=== PATIENT | female | born 1970 | race African-American/Black ===

== ENCOUNTER → 2017-01-05 | Outpatient (CLI) | payer OTHER ==
--- NOTE | 2017-01-06 06:41 | MM ---
Reason for exam: additional evaluation requested from abnormal screening. Last mammogram was performed less than 1 month ago. History: Family history of breast cancer in 3 sisters, breast cancer in mother, and breast cancer in 4 maternal aunts. Physical Findings: Nurse did not find any significant physical abnormalities on exam. MG Work Up Mamm w CAD LT LM and spot compression MLO view(s) were taken of the left breast. Prior study comparison: January 03, 2017, bilateral MG screening mammo w CAD. December 10, 2015, bilateral MG screening mammo w CAD. The breast tissue is extremely dense which could obscure a lesion on mammography. The previously seen asymmetry resolves on additional views and appear as surronding fibroglandular tissue. These results were verbally communicated with the patient and result sheet given to the patient on 01/05/17. ASSESSMENT: Benign, BI-RAD 2 RECOMMENDATION: Return to routine screening mammogram schedule for both breasts.
== END | disposition home or self-care (01) ==
LOC: RADMAMWWP 15:41
PROVIDERS: ATTEND Family Medicine
DX: R92.8 Other abnormal and inconclusive findings on diagnostic imaging of breast (principal)

== ENCOUNTER → 2019-10-30 | Outpatient (CLI) | payer BC ==
--- NOTE | 2019-10-31 07:31 | US ---
EXAMINATION TYPE: US transvaginal DATE OF EXAM: 10/30/2019 COMPARISON: NONE CLINICAL HISTORY: N92.1 Menopausal and female climacteric states. Irregular heavy cycles x 1 year, gr avida 2, para 2, history of tubal ligation TECHNIQUE: Transvaginal exam only per ordering physician. Date of LMP: 10/02/2019 EXAM MEASUREMENTS: Uterus: 7.1 x 3.8 x 4.4 cm Endometrial Stripe: 0.9 cm Right Ovary: not seen Left Ovary: 2.1 x 1.2 x 1.2 cm 1. Uterus: anteverted, mildly heterogeneous 2. Endometrium: measures wnl for patient's LMP 3. Right Ovary: not seen 4. Left Ovary: wnl 5. Bilateral Adnexa: wnl 6. Posterior cul-de-sac: wnl Slight heterogeneity of uterus without focal mass identified. Endometrial stripe within normal limits with normal trilaminar appearance. IMPRESSION: Nonvisualization of right ovary may be surgically absent otherwise unremarkable study.
== END | disposition home or self-care (01) ==
LOC: RADUSWWP 16:18
PROVIDERS: ATTEND Obstetrics & Gynecology
DX: N92.1 Excessive and frequent menstruation with irregular cycle (principal)
CPT/HCPCS: 76830

== ENCOUNTER 2020-02-02 14:38 | Emergency (ER) | payer BC ==
[2020-02-02 15:03] VITALS: RESP 18
[2020-02-02] MEDS ORDERED: ACETAMINOPHEN TAB 325 MG TAB PO STA (15:31)
[2020-02-02 16:11] VITALS: BP 117/81; PULSE 72
--- NOTE | 2020-02-02 16:18 | XR ---
EXAMINATION TYPE: XR chest 2V DATE OF EXAM: 02/02/2020 COMPARISON: NONE HISTORY: Fever TECHNIQUE: 2 views FINDINGS: Heart and mediastinum are normal. Lungs are clear. Diaphragm is normal. Bony thorax appears normal. Pulmonary vascularity is normal. IMPRESSION: Normal chest.
--- NOTE | 2020-02-02 16:22 | ED ---
Recheck HPI - General Chief Complaint: Recheck/Abnormal Lab/Rx Stated Complaint: Wants COVID Test Time Seen by Provider: 02/02/20 15:11 Source: patient Mode of arrival: ambulatory Limitations: no limitations - History of Present Illness Initial Comments: 49yo female denies PMH prsented today because daughter came to [facility] and tested positive for covid. Patient stats she feels ok just fatigued,, did not know she had a fever, denies cough, chest pain or SOB. Pateitn appears wel nontoxic on arrival. No other complaints. - Related Data Allergies Allergy/AdvReac Type Severity Reaction Status Date / Time No Known Allergies Allergy Verified 02/02/20 15:03 Review of Systems ROS Statement: Those systems with pertinent positive or pertinent negative responses have been documented in the HPI. ROS Other: All systems not noted in ROS Statement are negative. Past Medical History Past Medical History: No Reported History History of Any Multi-Drug Resistant Organisms: None Reported Past Surgical History: No Surgical Hx Reported Past Psychological History: No Psychological Hx Reported Smoking Status: Never smoker Past Alcohol Use History: None Reported Past Drug Use History: None Reported General Exam - General Exam Comments Initial Comments: General: The patient is awake and alert, in no distress, and does not appear acutely ill. Eye: Pupils are equal, round and reactive to light, extra-ocular movements are intact. No nystagmus. There is normal conjunctiva bilaterally. No signs of icterus. Ears, nose, mouth and throat: There are moist mucous membranes and no oral lesions. Neck: The neck is supple, there is no tenderness or JVD. Cardiovascular: There is a regular rate and rhythm. No murmur, rub or gallop is appreciated. Respiratory: Lungs are clear to auscultation, respirations are non-labored, breath sounds are equal. No wheezes, stridor, rales, or rhonchi. Gastrointestinal: Soft, non-distended, non-tender abdomen without masses or organomegaly noted. There is no rebound or guarding present. Musculoskeletal: Normal ROM, no tenderness. Strength 5/5. Sensation intact. Pulses equal bilaterally 2+. Neurological: A&O x 3. CN II-XII intact grossly, There are no obvious motor or sensory deficits. Coordination appears grossly intact. Speech is normal. Skin: Skin is warm and dry and no rashes or lesions are noted. Psychiatric: Cooperative, appropriate mood & affect, normal judgment. Limitations: no limitations Course Vital Signs 02/02/20 02/02/20 02/02/20 15:01 15:30 16:10 Temperature 100.3 F H Pulse Rate 86 72 Respiratory 18 18 18 Rate Blood Pressure 134/79 117/81 O2 Sat by Pulse 100 100 Oximetry 02/02/20 16:26 Temperature 98.1 F Pulse Rate 72 Respiratory 18 Rate Blood Pressure 117/81 O2 Sat by Pulse 100 Oximetry Medical Decision Making - Medical Decision Making Covid (-).. lungs clears CXR clear. But do suspect false negative given fever and close exposure. recommend self quarantine and outpatient f/u return for worsening/new symptoms. - Lab Data Lab Results 02/02/20 Range/Units 16:06 Coronavirus (PCR) Not Detected (Not Detectd) Disposition Clinical Impression: Fever, Exposure to COVID-19 virus Disposition: HOME SELF-CARE Condition: Good Additional Instructions: Please use medication as discussed. Please follow-up with family doctor in the next 2 days.. Please return to emergency room if the symptoms increase or worsen or for any other concerns. Is patient prescribed a controlled substance at d/c from ED?: No Referrals: Lincoln Perry MD [Primary Care Provider] - 1-2 days Time of Disposition: 16:22
[2020-02-02 16:29] VITALS: TEMP 98.1
== END 2020-02-02 16:30 | disposition home or self-care (01) ==
LOC: EC 14:38
DX: R50.9 Fever, unspecified (principal); Z20.828 Contact with and (suspected) exposure to other viral communicable diseases
CPT/HCPCS: 71046; 87635; 99283

== ENCOUNTER 2021-03-29 12:53 | Observation (INO) | payer BC ==
--- NOTE | 2021-03-29 13:10 | ED ---
General Adult HPI - General Chief complaint: Chest Pain Stated complaint: chest pain Time Seen by Provider: 03/29/21 13:00 Source: patient, EMS, RN notes reviewed, old records reviewed Mode of arrival: EMS Limitations: no limitations - History of Present Illness Initial comments: This a 50-year-old female with no past medical history. Patient states she was shoveling her driveway yesterday at about 11:00 in the morning and since since she's been having intermittent left-sided chest pain. Patient states the pain also makes her short of breath. Patient states she went to [facility] yesterday and they eventually discharged or. Patient states she went to follow-up with her primary medical care doctor this morning because the pain continued and she was also short of breath. The physician sent her to the emergency department via EMS. Patient states she had an aspirin and nitro glycerin in the embolus and currently she is feeling somewhat better. Patient denies any chest pain but continues complaining shortness of breath. Patient denies any recent fever chills or cough. Patient denies any abdominal pain patient denies nausea vomiting or diarrhea. Patient denies any leg swelling or calf tenderness. Patient denies any lightheadedness dizziness or near syncopal episode. Patient denies headache patient denies numbness weakness. - Related Data Home Medications Medication Instructions Recorded Confirmed Citalopram Hydrobromide [CeleXA] 20 mg PO DAILY 03/29/21 03/29/21 Allergies Allergy/AdvReac Type Severity Reaction Status Date / Time sulfamethoxazole Allergy Fever/Hives Verified 03/29/21 14:03 [From Bactrim] trimethoprim [From Bactrim] Allergy Fever/Hives Verified 03/29/21 14:03 Review of Systems ROS Statement: Those systems with pertinent positive or pertinent negative responses have been documented in the HPI. ROS Other: All systems not noted in ROS Statement are negative. Past Medical History Past Medical History: No Reported History History of Any Multi-Drug Resistant Organisms: None Reported Past Surgical History: No Surgical Hx Reported Past Psychological History: Anxiety, Depression Smoking Status: Never smoker Past Alcohol Use History: None Reported Past Drug Use History: None Reported General Exam - General Exam Comments Initial Comments: GENERAL: Patient is well-developed and well-nourished. Patient is nontoxic and well- hydrated and is in mild distress. ENT: Neck is soft and supple. No significant lymphadenopathy is noted. Oropharynx is clear. Moist mucous membranes. Neck has full range of motion without eliciting any pain. EYES: The sclera were anicteric and conjunctiva were pink and moist. Extraocular movements were intact and pupils were equal round and reactive to light. Eyelids were unremarkable. PULMONARY: Unlabored respirations. Good breath sounds bilaterally. No audible rales rhonchi or wheezing was noted. CARDIOVASCULAR: There is a regular rate and rhythm without any murmurs gallops or rubs. ABDOMEN: Soft and nontender with normal bowel sounds. SKIN: Skin is clear with no lesions or rashes and otherwise unremarkable. NEUROLOGIC: Patient is alert and oriented x3. Cranial nerves II through XII are grossly intact. Motor and sensory are also intact. Normal speech, volume and content. Symmetrical smile. MUSCULOSKELETAL: Normal extremities with adequate strength and full range of motion. No lower extremity swelling or edema. No calf tenderness. LYMPHATICS: No significant lymphadenopathy is noted PSYCHIATRIC: Normal psychiatric evaluation. Limitations: no limitations Course Vital Signs 03/29/21 03/29/21 12:54 14:22 Temperature 98.4 F Pulse Rate 71 68 Respiratory 20 20 Rate Blood Pressure 116/89 122/84 O2 Sat by Pulse 99 98 Oximetry Medical Decision Making - Medical Decision Making EKG shows normal sinus rhythm at 67 bpm UT interval 134 QRS is 74 Q-T intervals 416 QTC is 439. Patient's EKG shows no ST segment elevation or depression. Chest x-ray shows no acute normalities. Patient stated the Nitropaste seem to relieve her pain and she continues to be pain-free at this time. I spoke with Dr. Brunner he agreed to admit the patient to the patient consult cardiology. - Lab Data Result diagrams: 03/29/21 13:09 03/29/21 13:09 Lab Results 03/29/21 03/29/21 03/29/21 Range/Units 13:09 13:09 13:09 WBC 2.8 L (3.8-10.6) k/uL RBC 4.05 (3.80-5.40) m/uL Hgb 11.9 (11.4-16.0) gm/dL Hct 36.9 (34.0-46.0) % MCV 91.1 (80.0-100.0) fL MCH 29.4 (25.0-35.0) pg MCHC 32.3 (31.0-37.0) g/dL RDW 12.9 (11.5-15.5) % Plt Count 288 (150-450) k/uL MPV 7.8 Neutrophils % 51 % Lymphocytes % 35 % Monocytes % 4 % Eosinophils % 5 % Basophils % 1 % Neutrophils # 1.4 (1.3-7.7) k/uL Lymphocytes # 1.0 (1.0-4.8) k/uL Monocytes # 0.1 (0-1.0) k/uL Eosinophils # 0.1 (0-0.7) k/uL Basophils # 0.0 (0-0.2) k/uL PT 10.5 (9.0-12.0) sec INR 1.0 (<1.2) APTT 22.1 (22.0-30.0) sec Sodium 138 (137-145) mmol/L Potassium 3.9 (3.5-5.1) mmol/L Chloride 108 H (98-107) mmol/L Carbon Dioxide 25 (22-30) mmol/L Anion Gap 5 mmol/L BUN 5 L (7-17) mg/dL Creatinine 0.65 (0.52-1.04) mg/dL Est GFR (CKD-EPI)AfAm >90 (>60 ml/min/1.73 sqM) Est GFR (CKD-EPI)NonAf >90 (>60 ml/min/1.73 sqM) Glucose 95 (74-99) mg/dL Calcium 9.3 (8.4-10.2) mg/dL Magnesium 1.8 (1.6-2.3) mg/dL Total Bilirubin 0.4 (0.2-1.3) mg/dL AST 21 (14-36) U/L ALT 12 (4-34) U/L Alkaline Phosphatase 59 (38-126) U/L Troponin I (0.000-0.034) ng/mL Total Protein 6.9 (6.3-8.2) g/dL Albumin 3.6 (3.5-5.0) g/dL Coronavirus (PCR) (Not Detectd) 03/29/21 03/29/21 Range/Units 13:09 14:16 WBC (3.8-10.6) k/uL RBC (3.80-5.40) m/uL Hgb (11.4-16.0) gm/dL Hct (34.0-46.0) % MCV (80.0-100.0) fL MCH (25.0-35.0) pg MCHC (31.0-37.0) g/dL RDW (11.5-15.5) % Plt Count (150-450) k/uL MPV Neutrophils % % Lymphocytes % % Monocytes % % Eosinophils % % Basophils % % Neutrophils # (1.3-7.7) k/uL Lymphocytes # (1.0-4.8) k/uL Monocytes # (0-1.0) k/uL Eosinophils # (0-0.7) k/uL Basophils # (0-0.2) k/uL PT (9.0-12.0) sec INR (<1.2) APTT (22.0-30.0) sec Sodium (137-145) mmol/L Potassium (3.5-5.1) mmol/L Chloride (98-107) mmol/L Carbon Dioxide (22-30) mmol/L Anion Gap mmol/L BUN (7-17) mg/dL Creatinine (0.52-1.04) mg/dL Est GFR (CKD-EPI)AfAm (>60 ml/min/1.73 sqM) Est GFR (CKD-EPI)NonAf (>60 ml/min/1.73 sqM) Glucose (74-99) mg/dL Calcium (8.4-10.2) mg/dL Magnesium (1.6-2.3) mg/dL Total Bilirubin (0.2-1.3) mg/dL AST (14-36) U/L ALT (4-34) U/L Alkaline Phosphatase (38-126) U/L Troponin I <0.012 (0.000-0.034) ng/mL Total Protein (6.3-8.2) g/dL Albumin (3.5-5.0) g/dL Coronavirus (PCR) Not Detected (Not Detectd) Disposition Clinical Impression: Chest pain Disposition: ADMITTED IP TO THIS [facility] Referrals: Lincoln Perry MD [Primary Care Provider] - 1-2 days Time of Disposition: 15:54
[2021-03-29 13:22] LABS: Basophils % (A) 1 %; Eosinophils # (A) 0.1 k/uL (0-0.7); Eosinophils % (A) 5 %; HCT 36.9 % (34.0-46.0); HGB 11.9 gm/dL (11.4-16.0); Lymphocytes % (A) 35 %; MCH 29.4 pg (25.0-35.0); MCHC 32.3 g/dL (31.0-37.0); MCV 91.1 fL (80.0-100.0); Mean Platelet Volume 7.8; Monocytes # (A) 0.1 k/uL (0-1.0); Monocytes % (A) 4 %; Neutrophils # (A) 1.4 k/uL (1.3-7.7); Neutrophils % (A) 51 %; Platelet Count 288 k/uL (150-450); RBC 4.05 m/uL (3.80-5.40); RDW 12.9 % (11.5-15.5); WBC 2.8 k/uL (3.8-10.6)
--- NOTE | 2021-03-29 13:33 | XR ---
EXAMINATION TYPE: XR chest 2V DATE OF EXAM: 03/29/2021 COMPARISON: Chest x-ray 02/02/2020 HISTORY: Chest pain and shortness of breath TECHNIQUE: Frontal and lateral views of the chest are obtained. FINDINGS: There is no focal air space opacity, pleural effusion, or pneumothorax seen. The cardiac silhouette size is within normal limits. The osseous structures are intact. There are overlying sabas ds. Prominent lung volumes could be indicative of underlying COPD. IMPRESSION: No acute cardiopulmonary process.
[2021-03-29 13:39] LABS: Partial Thromboplastin Time 22.1 sec (22.0-30.0); Prothrombin Time 10.5 sec (9.0-12.0)
[2021-03-29 13:51] LABS: ALT 12 U/L (4-34); AST 21 U/L (14-36); African American GFR (CKD) >90 (>60 ml/min/1.73 sqM); Albumin 3.6 g/dL (3.5-5.0); Alkaline Phosphatase 59 U/L (38-126); Anion Gap 5 mmol/L; Blood Urea Nitrogen 5 mg/dL (7-17); Calcium 9.3 mg/dL (8.4-10.2); Carbon Dioxide 25 mmol/L (22-30); Chloride 108 mmol/L (98-107); Glucose 95 mg/dL (74-99); Magnesium 1.8 mg/dL (1.6-2.3); Non-African American GFR(CKD) >90 (>60 ml/min/1.73 sqM); Potassium 3.9 mmol/L (3.5-5.1); Sodium 138 mmol/L (137-145); Total Bilirubin 0.4 mg/dL (0.2-1.3); Total Protein 6.9 g/dL (6.3-8.2)
[2021-03-29] MEDS ORDERED: NITROGLYCERIN SL TABS 0.4 MG TAB SUBLINGUAL PRN (15:54)
[2021-03-29] MEDS: NITROGLYCERIN OINT 1 INCH/GM PACKET TOPICAL SCH (18:27)
[2021-03-29] MEDS ORDERED: TEMAZEPAM 15 MG CAP PO PRN (18:48)
[2021-03-29] MEDS ORDERED: LORazepam 0.5 MG TAB PO PRN (18:48)
[2021-03-29] MEDS ORDERED: HYDROcodone/APAP 5-325MG 1 EACH TAB PO PRN (18:48)
--- NOTE | 2021-03-29 20:48 | HP ---
HISTORY AND PHYSICAL DATE OF SERVICE: 03/29/2021 CHIEF COMPLAINT: Chest pain. HISTORY OF PRESENT ILLNESS: This 50-year-old woman with a past medical history of multiple medical problems, including history of anxiety, depression, being followed by Dr. Perry in the outpatient setting, was complaining of chest pain. The pain was felt in the anterior part of chest, mostly on the left side, and the patient apparently was admitted to [facility] and was discharged yesterday. The patient went to follow up with Dr. Perry, and the patient was directed to the emergency room at that time. There is no history of any fever, rigors or chills. No history of headache, loss of consciousness, seizures at this time. Patient also reports significant stress at home because the patient's brother, who was apparently healthy, suddenly, according to her. Initial evaluation showed white count of 2.8. Initial troponins are negative. Initial EKG which was reviewed personally by me showed nonspecific ST-T changes. Otherwise, a chest x-ray was also done which showed no acute abnormality. PAST MEDICAL HISTORY: No history of significant medical issues. Anxiety, depression. MEDICATIONS: Celexa 20 mg daily. ALLERGIES: BACTRIM. FAMILY HISTORY: No history of heart disease or strokes in the family. SOCIAL HISTORY: No history of smoking. No history of alcohol intake. REVIEW OF SYSTEMS: ENT: No diminished hearing. No diminished vision. CARDIOVASCULAR SYSTEM: As mentioned earlier. RESPIRATORY SYSTEM: As mentioned earlier. GI: No nausea, vomiting, diarrhea. : No dysuria. NERVOUS SYSTEM: No numbness, weakness. ALLERGY/IMMUNOLOGY: No asthma or hay fever. MUSCULOSKELETAL: As mentioned earlier. HEMATOLOGY/ONCOLOGY: No history of anemia. ENDOCRINE: No history of diabetes. CONSTITUTIONAL: As mentioned earlier. DERMATOLOGY: Negative. RHEUMATOLOGY: Negative. PSYCHIATRY: As mentioned earlier. PHYSICAL EXAMINATION: Patient alert and oriented x3. Pulse 71, blood pressure 116/89, respiration 20, temperature 98.4, pulse ox 99% on room air. HEENT: Conjunctivae normal. NECK: No jugular venous distention. CARDIOVASCULAR: S1, S2 muffled. RESPIRATION: Breath sounds diminished at the bases. No rhonchi. No crackles. ABDOMEN: Soft, nontender. No mass palpable. LEGS: No edema. No swelling. NERVOUS SYSTEM: Higher functions as mentioned earlier. Moves all 4 limbs. No focal motor or sensory deficit. LYMPHATICS: No lymph node palpable in neck, axillae or groin. SKIN: No ulcer, rash, bleeding. JOINTS: No active deforming arthropathy. LABS: WBC 2.8, hemoglobin 11.. Other labs are noted. EKG reviewed. ASSESSMENT: 1. Chest pain; possible angina. 2. Possible anxiety state and social stresses. 3. Leukopenia. 4. Anxiety, depression. RECOMMENDATIONS AND DISCUSSION: In this 50-year-old woman who presented with multiple complex issues, we will monitor the patient closely, continue the current management, continue symptomatic treatment. Rule out myocardial infarction. Unstable angina protocol. Cardiology consultation. Possible stress test in the morning. I would also recommend p.r.n. Ativan. Prognosis guarded. Further recommendations to follow. A copy of this dictation is being forwarded to Dr. Perry, who is the primary physician. SREEKANTH / EVARISTO: [id number] / MTDD
[2021-03-29] MEDS: PANTOPRAZOLE 40 MG TABLET PO SCH (22:18)
[2021-03-29 22:31] LABS: Appearance,Urine Cloudy (Clear); Bacteria,Urine Occasional /hpf; Bilirubin,Urine Negative (Negative); Blood,Urine Negative (Negative); Color,Urine Yellow; Glucose,Urine (UA) Negative (Negative); Ketones,Urine Negative (Negative); Leukocyte Esterase,Urine Small (Negative); Mucus,Urine Moderate /hpf; Nitrite,Urine Negative (Negative); Protein,Urine Trace (Negative); RBC,Urine 1 /hpf (0-5); Specific Gravity,Urine 1.033 (1.001-1.035); Squamous Epithelial Cell,Urine 27 /hpf (0-4); WBC,Urine 5 /hpf (0-5)
[2021-03-29 22:38] LABS: Amphetamine Screen,Urine Not Detected (NotDetected); Barbiturate Screen,Urine Not Detected (NotDetected); Benzodiazepines Screen,Urine Detected (NotDetected); Cocaine Screen,Urine Not Detected (NotDetected); Methadone Screen, Urine Not Detected (NotDetected); Opiate Screen,Urine Not Detected (NotDetected); Oxycodone Screen, Urine Not Detected (NotDetected); Phencyclidine Screen,Urine Not Detected (NotDetected); Tricyclic Antidepressant,Urine Not Detected (NotDetected); Urn Cannabinoid Scrn Not Detected (NotDetected)
[2021-03-30] MEDS: NITROGLYCERIN OINT 1 INCH/GM PACKET TOPICAL SCH ×3 (00:21→13:16)
[2021-03-30 05:40] VITALS: TEMP 98.1
[2021-03-30] MEDS: PANTOPRAZOLE 40 MG TABLET PO SCH (08:55)
[2021-03-30] MEDS ORDERED: CITALOPRAM HYDROBROMIDE 20 MG TAB PO SCH (09:00)
[2021-03-30] MEDS ORDERED: ASPIRIN 81 MG PO SCH (09:00)
[2021-03-30] MEDS ORDERED: ASPIRIN 325 MG TAB PO SCH (09:00)
[2021-03-30 09:10] LABS: HCT 36.1 % (37.2-46.3); HGB 11.3 g/dL (12.0-15.0); MCH 28.3 pg (27.0-32.0); MCHC 31.3 g/dL (32.0-37.0); MCV 90.5 fL (80.0-97.0); Mean Platelet Volume 10.6 fL (9.5-12.2); Platelet Count 267 X 10*3/uL (140-440); RBC 3.99 X 10*6/uL (4.10-5.20); RDW 12.4 % (11.5-14.5); WBC 3.36 X 10*3/uL (4.50-10.00)
--- NOTE | 2021-03-30 09:11 | P.CRDCN ---
History of Present Illness History of present illness: his a 50-year-old female with a past medical history of cocaine and alcohol abuse quit in 2004. She states she had an NH and "heart damage" in 2004 at [facility] in [place], was told it was due to cocaine and alcohol use. 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 She did see Dr. Ca in the office in 2016 for stress test, echocardiogram and holter monitor which was normal. We are consulted for chest pain. Patient states she was shoveling her driveway on Monday around 11:00am. She started to have left sided chest pain during shoveling snow. Worse with exertion. Non-radiating. She states she had 4 episodes of chest tightness during shoveling and had to take breaks. She had a ssociated lightheadedness, palpitations and shortness of breath. Her chest pain continued and she initially presented to [facility]. She states they gave her 325mg of aspirin, 4 sublingual nitro and Xanax. EKG was performed. Her chest pain resolved and she was discharged. She states Yesterday, her chest pain came back, and decided to present to the emergency department here. She den ies any nausea, vomiting, fever, cough or chills, denies syncope or near syncope. She denies any current illicit drug or alcohol use. She denies any current or previous tobacco. DIAGNOSTICS EKG reveals sinus rhythm, heart rate 67, no significant ST or T-wave abnormalities. EKG this morning revealed sinus bradycardia HR 56. Most recent echocardiogram in the office 05/2015 revealed EF 55%, no significant wall motion abnormalities Most recent stress test 05/2015 Lexiscan revealed normal myocardial perfusion and function with acquisition artifact Holter monitor and 2016 revealed sinus rhythm with episodes of sinus tachycardia, occasional PVCs. No episodes of pauses or arrhythmia Telemetry tracings indicate sinus mechanism, heart rate 60s80s Chest xray no acute cardiopulmonary process.. Laboratory reviewed, troponin negative 3, sodium 138, potassium 3.9, BUN 5, serum creatinine 0.6, magnesium 1.8, covid19 negative, WBC 2.8, hemoglobin 11.9, platelets 288 Current home medications include Celexa and Temazepam REVIEW OF SYSTEMS At the time of my exam: CONSTITUTIONAL: Denies fever or chills. CARDIOVASCULAR: Denies chest pain, shortness of breath, orthopnea, PND or palpitations. RESPIRATORY: Denies cough. GASTROINTESTINAL: Denies abdominal pain, diarrhea, constipation, nausea or vomiting. MUSCULOSKELETAL: Denies myalgias. NEUROLOGIC: Denies numbness, tingling, headache or weakness. ENDOCRINE: Denies fatigue, weight change, polydipsia or polyurina. GENITOURINARY: Denies burning, hematuria or urgency with micturation. HEMATOLOGIC: Denies history of anemia or bleeding. PHYSICAL EXAMINATION Vitals Reviewed CONSTITUTIONAL: No apparent distress. HEENT: Head is normocephalic. Pupils are equal, round. Sclerae anicteric. Mucous membranes of the mouth are moist. No JVD. No carotid bruit. CHEST EXAMINATION: Lungs are clear to auscultation. No chest wall tenderness is noted on palpation or with deep breathing. HEART EXAMINATION: Regular rate and rhythm. S1, S2 heard. No murmurs, gallops or rub. ABDOMEN: Soft, nontender. Positive bowel sounds. EXTREMITIES: 2+ peripheral pulses, no lower extremity edema and no calf tenderness. SKIN: warm, dry NEUROLOGIC EXAMINATION: Patient is awake, alert and oriented x3. ASSESSMENT Chest pain, atypical, acute coronary syndrome has been ruled out History of cocaine use History of previous NH and possible cardiomyopathy per patient in 2004 at [facility] in [place] PLAN An acute coronary event has been ruled out with no EKG evidence of ischemia and negative cardiac enzymes. Perform stress echocardiogram test to assess for stress induced cardiac ischemia. If abnormal will consider coronary angiography. If stress test is normal, ok to discharge from cardiology perspective and follow up outpatient. Thank you kindly for this consultation. Nurse Practitioner note has been reviewed, I agree with a documented findings and plan of care. Patient was seen and examined. Past Medical History Past Medical History: No Reported History History of Any Multi-Drug Resistant Organisms: None Reported Past Surgical History: No Surgical Hx Reported Past Anesthesia/Blood Transfusion Reactions: No Reported Reaction Past Psychological History: Anxiety, Depression Smoking Status: Never smoker Past Alcohol Use History: None Reported Past Drug Use History: None Reported Medications and Allergies Home Medications Medication Instructions Recorded Confirmed Type Citalopram Hydrobromide [CeleXA] 20 mg PO DAILY 03/29/21 03/29/21 History Allergies Allergy/AdvReac Type Severity Reaction Status Date / Time sulfamethoxazole Allergy Fever/Hives Verified 03/29/21 14:03 [From Bactrim] trimethoprim [From Bactrim] Allergy Fever/Hives Verified 03/29/21 14:03 Physical Exam Vitals: Vital Signs Temp Pulse Pulse Resp BP BP Pulse Ox 03/30/21 05:03 98.1 F 71 16 107/68 100 03/29/21 19:31 75 03/29/21 18:46 98.6 F 75 18 149/87 99 03/29/21 17:00 85 20 137/90 99 03/29/21 14:22 68 20 122/84 98 03/29/21 12:54 98.4 F 71 20 116/89 99 Intake and Output 03/29/21 03/30/21 03/30/21 22:59 06:59 14:59 Other: # Voids 3 Weight 63.049 kg Results 03/29/21 13:09 03/29/21 13:09 Cardiac Enzymes 03/29/21 03/29/21 03/29/21 Range/Units 13:09 13:09 16:28 AST 21 (14-36) U/L Troponin I <0.012 <0.012 (0.000-0.034) ng/mL 03/29/21 Range/Units 20:21 AST (14-36) U/L Troponin I <0.012 (0.000-0.034) ng/mL Coagulation 03/29/21 Range/Units 13:09 PT 10.5 (9.0-12.0) sec APTT 22.1 (22.0-30.0) sec CBC 03/29/21 Range/Units 13:09 WBC 2.8 L (3.8-10.6) k/uL RBC 4.05 (3.80-5.40) m/uL Hgb 11.9 (11.4-16.0) gm/dL Hct 36.9 (34.0-46.0) % Plt Count 288 (150-450) k/uL Comprehensive Metabolic Panel 03/29/21 Range/Units 13:09 Sodium 138 (137-145) mmol/L Potassium 3.9 (3.5-5.1) mmol/L Chloride 108 H (98-107) mmol/L Carbon Dioxide 25 (22-30) mmol/L BUN 5 L (7-17) mg/dL Creatinine 0.65 (0.52-1.04) mg/dL Glucose 95 (74-99) mg/dL Calcium 9.3 (8.4-10.2) mg/dL AST 21 (14-36) U/L ALT 12 (4-34) U/L Alkaline Phosphatase 59 (38-126) U/L Total Protein 6.9 (6.3-8.2) g/dL Albumin 3.6 (3.5-5.0) g/dL Current Medications Generic Name Dose Route Start Last Admin Trade Name Freq PRN Reason Stop Dose Admin Hydrocodone Bitart/Acetaminophen 1 each 03/29/21 18:48 Hydrocodone/Apap 5-325mg 1 Each Tab PO Q6HR PRN Pain Aspirin 325 mg 03/30/21 09:00 Aspirin 325 Mg Tab PO DAILY RADHA Citalopram Hydrobromide 20 mg 03/30/21 09:00 Citalopram Hydrobromide 20 Mg Tab PO DAILY RADHA Lorazepam 0.5 mg 03/29/21 18:48 Lorazepam 0.5 Mg Tab PO Q6HR PRN Anxiety Nitroglycerin 0.4 mg 03/29/21 15:54 Nitroglycerin Sl Tabs 0.4 Mg Tab SUBLINGUAL Q5M PRN Chest Pain Nitroglycerin 1 inch 03/29/21 18:00 03/30/21 04:45 Nitroglycerin Oint 1 Inch/Gm Packet TOPICAL Not Given Q6HR RADHA Pantoprazole Sodium 40 mg 03/29/21 19:00 03/29/21 22:18 Pantoprazole 40 Mg Tablet PO 40 mg [id number] RADHA Administration Temazepam 15 mg 03/29/21 18:48 Temazepam 15 Mg Cap PO HS PRN Insomnia Intake and Output 03/29/21 03/30/21 03/30/21 22:59 06:59 14:59 Other: # Voids 3 Weight 63.049 kg 03/29/21 13:09 03/29/21 13:09
[2021-03-30 09:13] LABS: African American GFR (CKD) 118.5 (60.0-200.0); Amylase 68 U/L (23-121); BUN/Creat Ratio 15.02 Ratio (12.00-20.00); Blood Urea Nitrogen 9.7 mg/dL (9.0-27.0); Chloride 106 mmol/L (96-109); Chol/HDL Ratio 3.45 Ratio; Glucose 95 mg/dL (70-110); LDL Cholesterol,Calculated 118.2 mg/dL (0.0-131.0); Lipase 31 U/L (14-63); Non-African American GFR(CKD) 102.2 (60.0-200.0); Potassium 4.3 mmol/L (3.5-5.5); Sodium 139 mmol/L (135-145); VLDL Calculation 13.24 mg/dL (5.00-40.00)
[2021-03-30 10:13] LABS: Basophils # (A) 0.03 X 10*3/uL (0.00-0.10); Basophils % (A) 0.9 %; Eosinophils # (A) 0.17 X 10*3/uL (0.04-0.35); Eosinophils % (A) 5.1 %; Lymphocytes % (A) 35.7 %; Monocytes # (A) 0.34 X 10*3/uL (0.20-1.00); Monocytes % (A) 10.1 %; Neutrophils # (A) 1.61 X 10*3/uL (1.80-7.70); Neutrophils % (A) 47.9 %
[2021-03-30 11:22] VITALS: BP 123/75; PULSE 75; RESP 17
--- NOTE | 2021-03-30 12:41 | P.STRESS ---
- Stress Test Note Stress Test Results/Findings: Exam Performed: stress echo exercise Exam Date: 03/30/21 Reason for Exam: CHEST PAIN Height: 5 ft 4 in Weight: 63.05 kg Protocol: STRESS ECHO Stage: 3 Duration of Exercise: 8:00 Resting Heart Rate: 65 Resting Blood Pressure: 127/72 Maximum Achieved Heart Rate: 149 Maximum Achieved Blood Pressure: 156/89 85% PMHR: 143 100% PMHR: 168 METS: 9.7 Technologist Comment: Stress Test Results/Findings: Patient underwent exercise stress echo with a Anthony protocol treadmill stress test. Patient exercised into Stage 3 for a total of 8 minutes reaching a total of 9.7 METS. Patient's maximum heart rate was 149 which represented 89% age- predicted maximum heart rate. Stress EKG portion: At baseline patient's EKG showed normal sinus rhythm, normal axis, no significant ST or T-wave abnormalities. At peak exercise, EKG showed no significant change from baseline. Stress echo portion: 2-D echocardiogram was performed in the parasternal long, personal short, apical 2 and apical four-chamber views at rest, peak exercise and in recovery. At baseline, echocardiogram showed left ventricular ejection fraction 55% without wall motion abnormalities. With peak exercise, echocardiogram shows improvement in left ventricular ejection fraction, increase contractility, decrease in left ventricular end systolic dimension without wall motion abnormalities consistent with a normal response to exercise. Conclusions: 1. Normal EKG and echo response to exercise without evidence of inducible ischemia. 2. Good exercise capacity. 3. Normal EF 55%.
--- NOTE | 2021-03-30 14:54 | DS ---
DISCHARGE SUMMARY DATE OF SERVICE: 03/30/2021 FINAL DIAGNOSES: 1. Chest pain possibly musculoskeletal, coronary artery disease ruled out, negative stress test. 2. Possible anxiety state and social stressors. 3. Leukopenia. 4. Anxiety, depression. DISCHARGE DISPOSITION: The patient being discharged in stable condition with guarded prognosis. HISTORY OF PRESENT ILLNESS: This 50-year-old woman with a past medical history of multiple medical problems presented with chest pain, myocardial infarction ruled out. The patient underwent a stress test and results negative. Patient discharged in stable with guarded prognosis. DISCHARGE ADVICE: 1. Diet is cardiac diet. 2. Activity limited until followup. 3. Follow up with Dr. Hank Dent in 2-3 days. 4. Follow up with Dr. Perry as recommended. DISCHARGE MEDICATIONS: 1. Celexa 20 mg p.o. daily. 2. Aspirin 81 mg p.o. daily. Patient will be discharged in stable condition with guarded prognosis. MMODL / IJN: [id number] /
== END 2021-03-30 13:27 | disposition home or self-care (01) ==
LOC: EC 12:53 → 6NMEDSUR 15:56
PROVIDERS: ADMIT Hospitalist; ATTEND Hospitalist
DX: R07.89 Other chest pain (principal); R06.02 Shortness of breath; R00.1 Bradycardia, unspecified; I25.2 Old myocardial infarction; F32.A Depression, unspecified; F41.9 Anxiety disorder, unspecified; D72.819 Decreased white blood cell count, unspecified; Z79.899 Other long term (current) drug therapy; Z20.822 Contact with and (suspected) exposure to COVID-19; Z88.1 Allergy status to other antibiotic agents; Z88.8 Allergy status to other drugs, medicaments and biological substances; Z87.898 Personal history of other specified conditions; Z82.41 Family history of sudden cardiac death
CPT/HCPCS: 99285; 36415; 93005; 93351; 80061; 80053; 80048; 82150; 83690; 83735; 84484; 85025 ×2; 85610; 85730; 81001; 80306; 87635; 71046; G0378 ×2

== ENCOUNTER → 2023-03-14 | Outpatient (CLI) | payer BC ==
--- NOTE | 2023-03-14 15:57 | US ---
EXAMINATION TYPE: US transvaginal DATE OF EXAM: 03/14/2023 COMPARISON: NONE CLINICAL INDICATION: Female, 52 years old with history of N92.1 EXCESSIVE AND FREQUENT MENSTRUATION W ITH IRR; TECHNIQUE: Transvaginal sonographic images were ordered. Date of LMP: October 2022 EXAM MEASUREMENTS: Uterus: 5.4 x 2.8 x 3.4 cm Endometrial Stripe: 0.2 cm Right Ovary: 1.3 x 1.4 x 0.8 cm Left Ovary: 2.3 x 1.3 x 1.3 cm 1. Uterus: Anteverted. Heterogenous fundus 2. Endometrium: wnl 3. Right Ovary: wnl 4. Left Ovary: wnl 5. Bilateral Adnexa: wnl 6. Posterior cul-de-sac: wnl IMPRESSION: 1. Some heterogeneity to the uterine fundus could reflect underlying small fibroid change or adenomyo sis. 2. Otherwise, no specific abnormality seen.
== END | disposition home or self-care (01) ==
LOC: RADUSWWP 09:44
PROVIDERS: ATTEND Family Medicine
DX: N92.1 Excessive and frequent menstruation with irregular cycle (principal); N85.8 Other specified noninflammatory disorders of uterus
CPT/HCPCS: 76830

== ENCOUNTER → 2023-04-24 | Outpatient (CLI) | payer BC ==
--- NOTE | 2023-04-25 08:14 | MM ---
Reason for Exam: Screening (asymptomatic). Last mammogram was performed 6 year(s) and 3 month(s) ago. Patient History: Menarche at age 14. First Full-Term at age 23. Maternal aunt had breast cancer. Maternal aunt had breast cancer. Maternal aunt had breast cancer. Maternal aunt had breast cancer. Sister had breast cancer. Sister had breast cancer. Sister had breast cancer. Mother had breast cancer. Risk Values: Rosie 5 year model risk: 2.6%. NCI Lifetime model risk: 15.1%. Prior Study Comparison: 12/10/2015 Bilateral Screening Mammogram, [facility]. 01/03/2017 Bilateral Screening Mammogram, [facility]. 01/05/2017 Left Diagnostic Mammogram, [facility]. Tissue Density: The breast tissue is heterogeneously dense. This may lower the sensitivity of mammography. Findings: Analyzed By CAD. There is no suspicious group of microcalcifications or new suspicious mass in either breast. Overall Assessment: Negative, BI-RAD 1 Management: Screening Mammogram of both breasts in 1 year. . Patient should continue monthly self-breast exams. A clinical breast exam by your physician is recommended on an annual basis. This exam should not preclude additional follow-up of suspicious palpable abnormalities. Note on Rosie scores and lifetime risk: 1. A Rosie score greater than 3% is considered moderate risk. If this is the case, consider specialist referral to assess eligibility for a risk reducing agent. 2. If overall lifetime risk for the development of breast cancer is 20% or higher, the patient may qualify for future screening with alternating mammogram and breast MRI. Electronically signed and approved by: Sean Mary M.D. Radiologis
== END | disposition home or self-care (01) ==
LOC: RADMAMWWP 10:15
PROVIDERS: ATTEND Family Medicine
DX: Z12.31 Encounter for screening mammogram for malignant neoplasm of breast (principal); Z80.3 Family history of malignant neoplasm of breast
CPT/HCPCS: 77067

== ENCOUNTER → 2024-04-29 | Outpatient (CLI) | payer BC ==
--- NOTE | 2024-04-29 11:16 | MM ---
Reason for Exam: Screening (asymptomatic). Last mammogram was performed 1 year(s) and 1 month(s) ago. Patient History: Menarche at age 14. First Full-Term at age 23. Maternal aunt had breast cancer. Maternal aunt had breast cancer. Maternal aunt had breast cancer. Maternal aunt had breast cancer. Sister had breast cancer. Mother had breast cancer. Risk Values: Rosie 5 year model risk: 2.7%. NCI Lifetime model risk: 14.8%. Prior Study Comparison: 01/03/2017 Bilateral Screening Mammogram, [facility]. 01/05/2017 Left Diagnostic Mammogram, [facility]. 04/24/2023 Bilateral MG screening mammo w CAD, [facility]. Tissue Density: The breasts are heterogeneously dense, which may obscure small masses. Findings: Analyzed By CAD. There is no suspicious group of microcalcifications or new suspicious mass in either breast. Overall Assessment: Negative, BI-RAD 1 Management: Screening Mammogram of both breasts in 1 year. . Patient should continue monthly self-breast exams. A clinical breast exam by your physician is recommended on an annual basis. This exam should not preclude additional follow-up of suspicious palpable abnormalities. Note on Rosie scores and lifetime risk: 1. A Rosie score greater than 3% is considered moderate risk. If this is the case, consider specialist referral to assess eligibility for a risk reducing agent. 2. If overall lifetime risk for the development of breast cancer is 20% or higher, the patient may qualify for future screening with alternating mammogram and breast MRI. [facility], , 04/29/2024 11:13 AM. Electronically signed and approved by: Bulmaro Randolph M.D.
== END | disposition home or self-care (01) ==
LOC: RADMAMWWP 09:45
PROVIDERS: ATTEND Family Medicine
DX: R92.333 Mammographic heterogeneous density, bilateral breasts (principal); Z80.3 Family history of malignant neoplasm of breast
CPT/HCPCS: 77067

== ENCOUNTER → 2024-06-05 | Outpatient (CLI) | payer BC ==
--- NOTE | 2024-06-05 11:14 | USB ---
Reason for Exam: Clinical finding. Patient History: Menarche at age 14. First Full-Term at age 23. Maternal aunt had breast cancer. Maternal aunt had breast cancer. Maternal aunt had breast cancer. Maternal aunt had breast cancer. Sister had breast cancer. Mother had breast cancer. Risk Values: Rosie 5 year model risk: 2.7%. NCI Lifetime model risk: 14.8%. Technique: Method: Whole Breast Handheld. Prior Study Comparison: 01/05/2017 Left Diagnostic Mammogram, [facility]. 04/24/2023 Bilateral MG screening mammo w CAD, [facility]. 04/29/2024 Bilateral MG screening mammo w CAD, [facility]. Findings: The whole breast of both breasts, the axilla of both breasts and the retroareolar of both breasts were scanned. EXAM: US breast complete BILAT DATE OF EXAM: 06/05/2024 11:03 AM COMPARISON STUDIES: PATIENT HISTORY: Menarche at age 14. First Full-Term at age 23. Maternal aunt had breast cancer. Maternal aunt had breast cancer. Maternal aunt had breast cancer. Maternal aunt had breast cancer. Sister had breast cancer. Mother had breast cancer. RISK CALCULATION: Rosie 5 year model risk: 2.7%. NCI Lifetime model risk: 14.8%.A complete US of all four quadrants of the breast and retro-areolar region were reviewed. No solid or cystic masses are identified. Overall Assessment: Negative, BI-RAD 1 Management: Screening Mammogram of both breasts in 11 months. A clinical breast exam by your physician is recommended on an annual basis and results should be correlated with mammographic findings. This exam should not preclude additional follow-up of suspicious palpable abnormalities. Results were given to the patient verbally at the time of exam. A clinical breast exam by your physician is recommended on an annual basis and results should be correlated with mammographic findings. This exam should not preclude additional follow-up of suspicious palpable abnormalities. Results were given to the patient verbally at the time of exam. [facility], , 06/05/2024 11:10 AM. Electronically signed and approved by: Sean Mary M.D. Radiologis
== END | disposition home or self-care (01) ==
LOC: RADMAMWWP 10:28
PROVIDERS: ATTEND Family Medicine
DX: N64.52 Nipple discharge (principal); Z80.3 Family history of malignant neoplasm of breast